=== PATIENT | male | born 1950 | race Caucasian/White ===

== ENCOUNTER → 2017-04-18 | Outpatient (CLI) | payer MEDICARE ==
--- NOTE | 2017-04-18 17:05 | RADIOLOGY REPORT PS360 ---
CHEST(2 VIEWS-NOT PORTABLE) Ordering physician: Jevon Robledo MD Age: 66 years Male INDICATION: chest symptomsPERSISTENT COUGH persistent cough PROCEDURE: CHEST(2 VIEWS-NOT PORTABLE) COMPARISON is made to 11/15/2016 CXR FINDINGS: . Lungs well expanded and clear with no focal pneumonia. Minimal linear scarring or atelectasis seen towards the left base. Otherwise unremarkable CXR. Heart margy and mediastinal structures appear satisfactory and stable. Chest wall T-spine appear satisfactory and stable. No pleural effusion. No pneumothorax. IMPRESSION ----- No active disease Stable chest with Nothing definite acute. Only minor Linear atelectasis left base noted
== END ==
LOC: RAD 15:40
DX: R05 Cough (principal)

== ENCOUNTER → 2017-07-11 | Outpatient (CLI) | payer MEDICARE ==
--- NOTE | 2017-07-12 05:41 | RADIOLOGY REPORT PS360 ---
LDCT FOR LUNG CA SCREEN HISTORY: Follow-up pulmonary nodules, emphysema, tobacco abuse, positive smoking history PULMONARY NODULE 6 MONTH FU ORDERING PHYSICIAN: Jevon Robledo MD PATIENT AGE: 67 years TECHNIQUE: Helical acquisition obtained following the intravenous administration of 75 mL of Isovue 370 .. Axial, sagittal, and coronal reformatted images are generated and reviewed. COMPARISON: 01/04/2017 FINDINGS: Scattered small lymph nodes are present within the mediastinum unchanged. No mediastinal or hilar adenopathy or mass. Coronary artery calcifications. Mild centrilobular emphysematous change Biapical fibronodular changes are once again noted. No change in a 6 mm nodule in the left apex. Calcified granuloma left lower lobe. There is a 3 mm nodule in the left lower lobe unchanged. Gynecomastia noted. Upper abdominal images show small lymph nodes in the portal area and measuring up to 1.4 x 1.1 cm IMPRESSION: 1. Overall stable CT appearance of the chest. No change in the 6 mm left upper lobe nodule. 2. Centrilobular emphysematous change/COPD 3. Coronary artery disease. 4. Small lymph nodes are present in the periportal region nonspecific
== END ==
LOC: RAD 12:29
DX: R91.1 Solitary pulmonary nodule (principal); Z87.891 Personal history of nicotine dependence; Z12.2 Encounter for screening for malignant neoplasm of respiratory organs